=== PATIENT | male | born 1955 | race Caucasian/White ===

== ENCOUNTER → 2019-08-17 09:20 | Outpatient (CLI) | payer BC ==
[2019-08-17 11:03] LABS: CALC OSMOLALITY 281 mosm/kg (275-300); CARBON DIOXIDE 31.3 mmol/L (21.0-32.0); CHLORIDE - SERUM 103 mmol/L (98-107); GLUCOSE 147 mg/dL (74-106); POTASSIUM - SERUM 3.4 mmol/L (3.5-5.1); SODIUM 139 mmol/L (136-145); UREA NITROGEN 14 mg/dL (7-18); eGFR NON AFRICAN AMERICAN 80 mL/min (90-120)
[2019-08-17 11:07] LABS: HEMATOCRIT 43.1 % (42.0-54.0); HEMOGLOBIN 14.6 g/dL (13.5-17.5); LYMPHOCYTES 24.9 % (15-50); MCH 30.5 pg (26.0-34.0); MCHC 33.9 g/dL (31.0-37.0); NEUTROPHILS 64.6 % (40-80); PLATELET COUNT 215 10x3/uL (130-400); RBC 4.79 10x6/uL (4.20-6.10); RDW 14.8 % (11.5-14.5); WBC 5.3 10x3/uL (4.8-10.8)
--- NOTE | 2019-08-18 08:16 | EC ---
PATIENT:SHYANNE JIMENEZ DATE OF SERVICE: 08/17/19 SEX: M MEDICAL RECORD: [id number] DATE OF : 55 LOCATION:[facility] AGE OF PATIENT: 63 ADMISSION DATE: 08/17/19 REFERRING PHYSICIAN: INTERPRETING PHYSICIAN: LUCY ROBERTS MD ECHOCARDIOGRAM REPORT ECHO CHARGES 4 ECHO COMPLETE Date: 08/17/19 CLINICAL DIAGNOSIS: CHF HX ICD ECHOCARDIOGRAPHIC MEASUREMENTS (adult normal given) AC root (d.<3.7cm) 3.5 cm LV Septum d (<1.2 cm> 1.2 cm Valve Excursion 1.8 cm LV Septum (systole) 1.3 cm Left Atria (s.<4.0cm> 4.3 cm LVPW d(<1.2cm) 1.2 cm RV (d.<2.3cm) 2.9 cm LVPW (sytole) 1.5 cm LV diastole(<5.6CM) 5.5 cm MV E-F(>70mm/sec) cm LV systole 4.3 cm LVOT Diameter 2.3 cm MV exc.(>10mm) 1.6 cm Est.ejection fraction (50-75%) % DOPPLER: LVIT cm/sec A 56.0 cm/sec E 36.0 cm/sec LA cm/sec RVSP 25 mmHg LVOT 95 cm/sec AOP1/2T m/s Asc. Ao 113 cm/sec RVOT 71 cm/sec RA cm/sec PA 120 cm/sec AV Gradient Peak 5.09 mmHg AV Mean 2.83 mmHg AV Area 3.4 cm MV Gradient Peak 1.91 mmHg MV Mean 0.83 mmHg MV Area cm COMMENTS: Hotel Maintenance Technician: 2 JAYLEN SAHU Family Support Coordinator: 3 Dr. Bedoya TAPE# PACS Pericardial Effusion N DATE OF SERVICE: Adequate 2D, color flow imaging, spectral Doppler, and M-mode. LVH is present. LV internal dimension is normal. LV wall motion mildly globally hypo with EF lower limits of normal, mildly reduced at 40% to 45%. Aortic valve is sclerosed without stenosis by Doppler interrogation. Left atrium is minimally dilated at 4.1 cm. Mitral valve shows no prolapse. Trace MR. Right-sided chambers are grossly normal. Mild TR. ECHOCARDIOGRAM REPORT [id number] SHYANNE JIMENEZ TRANSINT:[id number] Voice Confirmation ID: [id number] DOCUMENT ID: [id number] LUCY ROBERTS MD at 0816 CC: [id number] DICTATION DATE: 08/17/19 140 [employer]GER [employer]: 08/17/19 2218 DEP CLI 08/17/19 [place] [id number] [place] [id number]
== END | disposition home or self-care (01) ==
LOC: D.RT 09:00
PROVIDERS: ATTEND Internal Medicine Pulmonary Disease
DX: R06.09 Other forms of dyspnea (principal); J92.9 Pleural plaque without asbestos; I50.22 Chronic systolic (congestive) heart failure

== ENCOUNTER → 2020-02-19 12:27 | Outpatient (CLI) | payer MEDICARE, BC ==
[2020-02-22 08:09] LABS: ANA REFLEX - DIRECT Negative (Negative)
[2020-02-22 12:09] LABS: ANGIOTENSIN CONVERTING ENZYME 35 U/L (14-82)
== END | disposition home or self-care (01) ==
LOC: D.LAB 12:27 → D.CT 13:00
PROVIDERS: ATTEND Internal Medicine Pulmonary Disease
DX: R91.1 Solitary pulmonary nodule (principal)